=== PATIENT | male | born 1995 | race African-American/Black ===

== ENCOUNTER 2017-01-09 21:24 | Emergency (ER) | payer OTHER ==
[~2017-01-09] VITALS: Ht 193 cm; Wt 170.1 kg
[~2017-01-09 21:24] MED LIST: BENZ100C PO; NAPR375T3 PO
[2017-01-09 21:30] VITALS: BP 195/105
--- NOTE | 2017-01-09 21:51 | PHYS DOC ---
Past Medical History Past Medical History: Asthma, Hypertension Past Surgical History: Tonsillectomy, Other Additional Past Surgical Histo: ROTATOR CUFF Alcohol Use: Occasionally Drug Use: Marijuana Adult General Chief Complaint Chief Complaint: ANIMAL BITE [facility] HPI Patient is a 21 year old male presents the emergency department with complaint of a dog bite to the right lower leg that occurred at approximately 7 PM this evening. Patient states that the dog is known to him and appeared to be a stray. He did not notice any type of traumatic or unusual behavior. He denies any additional bites or concerns at this time. Of incidental note, patient does have a history of high blood pressure that was monitored by his previous primary care doctor. He currently does not have a primary care doctor. He denies headaches, chest pain, visual disturbances, focal weakness or alterations in sensation. Review of Systems Review of Systems Constitutional: Denies fever or chills [] Eyes: Denies change in visual acuity, redness, or eye pain [] HENT: Denies nasal congestion or sore throat [] Respiratory: Denies cough or shortness of breath [] Cardiovascular: No additional information not addressed in HPI [] GI: Denies abdominal pain, nausea, vomiting, bloody stools or diarrhea [] : Denies dysuria or hematuria [] Musculoskeletal: Denies back pain or joint pain [] Integument: Denies rash or skin lesions [] Neurologic: Denies headache, focal weakness or sensory changes [] Endocrine: Denies polyuria or polydipsia [] Current Medications Current Medications Current Medications Medications (Trade) Dose Ordered Sig/Josey Start Time Stop Time Status Last Admin Dose Admin Diphtheria/ Tetanus/Acell Pertussis (Boostrix) 0.5 ml ONCE ONCE 01/09/17 22:00 01/09/17 22:01 DC 01/09/17 22:08 0.5 ML Allergies Allergies Allergies Coded Allergies Type Severity Reaction Last Updated Verified shellfish derived Allergy Intermediate 04/11/14 Yes Physical Exam Physical Exam Constitutional: Well developed, well nourished, no acute distress, non-toxic appearance. [] HENT: Normocephalic, atraumatic, bilateral external ears normal, oropharynx moist, no oral exudates, nose normal. [] Eyes: PERRLA, EOMI, conjunctiva normal, no discharge. [] Neck: Normal range of motion, no tenderness, supple, no stridor. [] Cardiovascular:Heart rate regular rhythm, no murmur [] Lungs & Thorax: Bilateral breath sounds clear to auscultation [] Abdomen: Bowel sounds normal, soft, no tenderness, no masses, no pulsatile masses. [] Skin: Warm, dry, no erythema, no rash. [] Back: No tenderness, no CVA tenderness. [] Extremities: Right lower extremity with 5, superficial puncture wounds to the medial aspect. There is no active bleeding at this time. The puncture wounds show no evidence of retained tooth/foreign bodies. Right lower extremity is neurovascularly intact distally with capillary refill less than 2 seconds in the toes. Neurologic: Alert and oriented X 3, normal motor function, normal sensory function, no focal deficits noted. [] Psychologic: Affect normal, judgement normal, mood normal. [] Current Patient Data Vital Signs Vital Signs Date Time Temp Pulse Resp B/P (MAP) Pulse Ox O2 Delivery O2 Flow Rate FiO2 01/09/17 21:30 98.5 92 18 95 Room Air 98.5 EKG EKG [] Radiology/Procedures Radiology/Procedures [] Course & Med Decision Making Course & Med Decision Making [employer] was contacted. Patient's information was provided to [place]. OrangeHRM Disclaimer OrangeHRM Disclaimer This electronic medical record was generated, in whole or in part, using a voice recognition dictation system. Departure Departure Impression: Primary Impression: Dog bite Additional Impression: Hypertension Disposition: 01 HOME, SELF-CARE Condition: GOOD Referrals: NO PCP (PCP) Patient Instructions: Animal Bite, [id number], Diphtheria Toxoid; Tetanus Toxoid Adsorbed, DT, Td, Hypertension, [id number] Additional Instructions: 1. Review the discharge instructions provided for self-care and reasons to return to the emergency department. 2. It is important for you to have a primary care doctor to follow-up with for wound check of your leg as well as discuss your blood pressure. 3. Use the pamphlet provided for assistance in finding a primary care doctor. Please call Wednesday to schedule an appointment. 4. Take the medication as prescribed. Scripts Hydrocodone/Apap 5-325 (NORCO 5-325 TABLET) 1 Each Tablet 1 TAB PO PRN Q6HRS Y for PAIN, #10 TAB 0 Refills Prov: JOSELYN BRAUN 01/09/17 Amoxicillin/Potassium Clav (AUGMENTIN 875-125 TABLET) 1 Each Tablet 1 TAB PO BID, #14 TAB Prov: JOSELYN BRAUN 01/09/17 Problem Qualifiers JOSELYN BRAUN January 09, 2017 21:51
[2017-01-09] MEDS ORDERED: AMOX1TAB61 PO (21:55)
[2017-01-09] MEDS ORDERED: HYDR-971 PO (21:55)
[2017-01-09] MEDS ORDERED: DIPHTH,PERTUSS(ACELL),TET TOX 0.5 ML DISP.SYRIN. VAX IM ONE (22:00)
== END 2017-01-09 22:09 | disposition home or self-care (01) ==
LOC: ER 21:24
DX: S81.851A Open bite, right lower leg, initial encounter (principal); J45.909 Unspecified asthma, uncomplicated; I10 Essential (primary) hypertension; F12.10 Cannabis abuse, uncomplicated; Z91.013 Allergy to seafood; W54.0XXA Bitten by dog, initial encounter; Y93.89 Activity, other specified; Y99.8 Other external cause status; Y92.89 Other specified places as the place of occurrence of the external cause
CPT/HCPCS: 90471; 90715; 99283-25

== ENCOUNTER 2020-07-10 10:16 | Emergency (ER) | payer SELFPAY ==
[~2020-07-10] VITALS: Ht 193 cm; Wt 165.0 kg
[~2020-07-10 10:16] MED LIST changes: +AMOX1TAB61 PO; +HYDR-3164 PO; +NAPR-695 PO; -NAPR375T3 PO
[2020-07-10] MEDS ORDERED: methylPREDNISolone SOD SUCC PF 125 MG/2 ML VIAL. IV ONE (11:30)
[2020-07-10] MEDS ORDERED: diphenhydrAMINE 50 MG/ML VIAL IVP ONE (11:30)
[2020-07-10] MEDS ORDERED: FAMOTIDINE 20 MG/2 ML VIAL IVP ONE (11:30)
--- NOTE | 2020-07-10 11:30 | PHYS DOC ---
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 States he is allergic to mold and the last time this happened his throat started closing up. He states that he is having itchy eyes, itchy throat, itchy nose, itchy skin. Patient denies shortness of breath, rash, chest pain, dizziness or headache. Patient denies any pain. Patient has a history of asthma, hypertension, smoker, tonsillectomy. Patient states he takes no medications daily and took no medi cation for symptoms prior to coming to the ED. Review of Systems: Review of Systems: Constitutional: Denies fever or chills. [] Eyes: Denies change in visual acuity. + Itching eyes [] HENT: Denies nasal congestion or sore throat. +Itchy throat, +itchy nose. [] Respiratory: Denies cough or shortness of breath. [] Cardiovascular: Denies chest pain or edema. [] GI: Denies abdominal pain, nausea, vomiting, bloody stools or diarrhea. [] : Denies dysuria. [] Musculoskeletal: Denies back pain or joint pain. [] Integument: Denies rash. + Generalized itching [] Neurologic: Denies headache, focal weakness or sensory changes. [] Endocrine: Denies polyuria or polydipsia. [] Lymphatic: Denies swollen glands. [] Psychiatric: Denies depression or anxiety. [] Heart Score: Risk Factors: Risk Factors: DM, Current or recent (<one month) smoker, HTN, HLP, family history of CAD, obesity. Risk Scores: Score 0 - 3: 2.5% MACE over next 6 weeks - Discharge Home Score 4 - 6: 20.3% MACE over next 6 weeks - Admit for Clinical Observation Score 7 - 10: 72.7% MACE over next 6 weeks - Early Invasive Strategies Allergies: Allergies: Allergies Coded Allergies Type Severity Reaction Last Updated Verified shellfish derived Allergy Intermediate 04/11/14 Yes Physical Exam: PE: Constitutional: Well developed, well nourished, no acute distress, non-toxic appearance. [] HENT: Normocephalic, atraumatic, bilateral external ears normal, oropharynx moist, no oral exudates, nose normal. [] Eyes: PERRLA, EOMI, conjunctiva normal, no discharge. [] Neck: Normal range of motion, no tenderness, supple, no stridor. [] Cardiovascular:Heart rate regular rhythm, no murmur [] Lungs & Thorax: Bilateral breath sounds clear to auscultation [] Abdomen: Bowel sounds normal, soft, no tenderness, no masses, no pulsatile masses. [] Skin: Warm, dry, no erythema, no rash. [] Back: No tenderness, no CVA tenderness. [] Extremities: No tenderness, no cyanosis, no clubbing, ROM intact, no edema. [] Neurologic: Alert and oriented X 3, normal motor function, normal sensory function, no focal deficits noted. [] Psychologic: Affect normal, judgement normal, mood normal. Normal physical exam [] EKG: EKG: [] Radiology/Procedures: Radiology/Procedures: [] Course & Med Decision Making: Course & Med Decision Making Pertinent Labs and Imaging studies reviewed. (See chart for details) See HPI. Throat is pink and nonswollen and there is no hives or swelling inside the mouth. No tongue swelling. Speaks in full complete sentences. Vital signs are within normal limits. Lungs are clear to auscultation in all lobes. No rash or hives to the body. No swelling to the body. Ambulatory with a steady gait. Skin pink warm and dry. Patient is given IV Benadryl, Pepcid, Solu-Medrol. Patient states he is feeling much better and all the symptoms are gone. Patient to take benadryl, pepcid and medrol dose pack. [] Eve Disclaimer: Eve Disclaimer: This electronic medical record was generated, in whole or in part, using a voice recognition dictation system. Departure Departure Impression: Primary Impression: Allergic reaction Qualified Codes: T78.40XA - Allergy, unspecified, initial encounter Disposition: 01 DC HOME SELF CARE/HOMELESS Condition: STABLE Referrals: NO PCP (PCP) Patient Instructions: Allergies, Generic Additional Instructions: Take all your medications as prescribed. Follow-up primary care doctor if needed. I would carry the Benadryl with you at work so if this happens again you can take Benadryl. Scripts Epinephrine (EPIPEN 2-GODWIN) 0.3 Mg/0.3 Ml Auto.injct 1 SYR IM ONCE for 1 Day, #1 PACKET 0 Refills Prov: BHARGAV RIDER ETHICS INSTRUCTOR 07/10/20 Diphenhydramine Hcl (BENADRYL) 25 Mg Capsule 1 CAP PO BID for 4 Days, #8 CAP 0 Refills Prov: BHARGAV RIDER ETHICS INSTRUCTOR 07/10/20 Famotidine (PEPCID) 20 Mg Tablet 20 MG PO BID, #8 TAB Prov: BHARGAV RIDER ETHICS INSTRUCTOR 07/10/20 Methylprednisolone (MEDROL) 4 Mg Tab.ds.pk 1 PKG PO UD, #1 PKG Prov: BHARGAV RIDER ETHICS INSTRUCTOR 07/10/20 BHARGAV RIDER APRN Jul 10, 2020 11:30
[2020-07-10] MEDS ORDERED: METH4TAB2 PO (12:45)
[2020-07-10] MEDS ORDERED: EPIPEN 2-P0.3 MG/0.3 IM (12:45)
[2020-07-10] MEDS ORDERED: DIPH25CA58 PO (12:45)
[2020-07-10] MEDS ORDERED: FAMO-63 PO (12:45)
[2020-07-10 13:00] VITALS: BP 137/59
== END 2020-07-10 13:02 | disposition home or self-care (01) ==
LOC: ER 10:16
DX: L29.9 Pruritus, unspecified (principal); T78.49XA Other allergy, initial encounter; J45.909 Unspecified asthma, uncomplicated; I10 Essential (primary) hypertension; F17.200 Nicotine dependence, unspecified, uncomplicated; F12.90 Cannabis use, unspecified, uncomplicated; Z90.89 Acquired absence of other organs; Z98.890 Other specified postprocedural states; Y92.89 Other specified places as the place of occurrence of the external cause
CPT/HCPCS: 96374; 96375; 99285; J1200; J2930; J3490

== ENCOUNTER 2021-05-24 20:04 | Emergency (ER) | payer OTHER ==
[~2021-05-24] VITALS: Ht 193 cm; Wt 190.9 kg
[~2021-05-24 20:04] MED LIST changes: +DIPH25CA58 PO; +EPIPEN 2-P0.3 MG/0.3 IM; +FAMO-63 PO; +METH4TAB2 PO
[2021-05-24 21:33] VITALS: BP 138/74
== END 2021-05-24 22:40 | disposition left against medical advice (07) ==
LOC: ER 20:04
DX: R51.9 Headache, unspecified (principal); M54.9 Dorsalgia, unspecified; Z53.21 Procedure and treatment not carried out due to patient leaving prior to being seen by health care provider